=== PATIENT | male | born 1990 | race American Indian/Alaskan Native ===

== ENCOUNTER 2018-02-11 12:25 | Emergency (ER) | payer OTHER ==
[2018-02-11] MEDS ORDERED: AMIDATE IV ONE (12:46)
--- NOTE | 2018-02-11 12:59 | Emergency Department Report ---
ED Upper Extremity Inj HPI - General Chief Complaint: Shoulder Injury Stated Complaint: RT DISLOCATED SHOULDER Time Seen by Provider: 02/11/18 12:31 Source: patient, EMS Mode of arrival: Stretcher Limitations: No Limitations - History of Present Illness Initial Comments: States history of recurrent right side shoulder dislocation has never followed up with ortho here for evaluation. no numbness tingling or weakness says it popped when he tried his jacket on a school denies any other complaints no other injuries Complaint: Injury to:: right, shoulder -: Sudden Other Injuries: none Associated Symptoms: denies other symptoms. denies: weakness, numbness, neck pain, suspects foreign body, nausea/vomiting - Related Data Previous Rx's Medication Instructions Recorded Last Taken Type Naproxen [Naprosyn] 500 mg PO BID PRN #30 tablet 02/11/18 Unknown Rx Allergies Allergy/AdvReac Type Severity Reaction Status Date / Time No Known Allergies Allergy Unverified 02/11/18 12:31 ED Review of Systems ROS: Stated complaint: RT DISLOCATED SHOULDER Other details as noted in HPI Comment: All other systems reviewed and negative Constitutional: denies: diaphoresis, fever, malaise Respiratory: denies: shortness of breath, SOB with exertion, SOB at rest, stridor, wheezing Cardiovascular: denies: chest pain, palpitations, dyspnea on exertion, orthopnea , edema, syncope, paroxysmal nocturnal dyspnea Gastrointestinal: denies: diarrhea, constipation, hematemesis, melena Musculoskeletal: as per HPI, arthralgia, myalgia. denies: joint swelling Skin: denies: pruritus Neurological: denies: numbness, paresthesias ED Past Medical Hx - Past Medical History Additional medical history: Right shoulder dislocation - Surgical History Past Surgical History?: No - Social History Smoking Status: Never Smoker Substance Use Type: None - Medications Home Medications: Home Medications Medication Instructions Recorded Confirmed Last Taken Type Naproxen [Naprosyn] 500 mg PO BID PRN #30 tablet 02/11/18 Unknown Rx ED Physical Exam - General Limitations: No Limitations General appearance: alert, anxious - Head Head exam: Present: atraumatic, normocephalic - Eye Eye exam: Present: normal appearance, PERRL, EOMI - ENT ENT exam: Present: normal exam, normal orophraynx - Neck Neck exam: Present: normal inspection. Absent: tenderness, meningismus - Respiratory Respiratory exam: Present: normal lung sounds bilaterally. Absent: respiratory distress, wheezes, rales, rhonchi, stridor, chest wall tenderness, accessory muscle use, decreased breath sounds, prolonged expiratory - Cardiovascular Cardiovascular Exam: Present: regular rate, normal rhythm - GI/Abdominal GI/Abdominal exam: Present: soft. Absent: distended, tenderness, guarding, rebound, mass, bruit, pulsatile mass - Extremities Exam Extremities exam: Present: other (deformity right shoulder distally neurovascularly intact) - Back Exam Back exam: Present: normal inspection. Absent: CVA tenderness (L), muscle spasm , paraspinal tenderness, vertebral tenderness - Neurological Exam Neurological exam: Present: alert, oriented X3, CN II-XII intact. Absent: motor sensory deficit ED Course Vital Signs 02/11/18 02/11/18 12:31 13:22 Temperature 98.7 F Pulse Rate 69 Pulse Rate [ 62 Post-Procedure] Pulse Rate [Pre 68 -Procedure] Respiratory 17 Rate Respiratory 18 Rate [Post- Procedure] Respiratory 20 Rate [Pre- Procedure] Blood Pressure 134/93 Blood Pressure 127/88 [Post-Procedure ] Blood Pressure 123/82 [Pre-Procedure] O2 Sat by Pulse 100 Oximetry O2 Sat by Pulse 100 Oximetry [Post -Procedure] O2 Sat by Pulse 100 Oximetry [Pre- Procedure] - Reevaluation(s) Reevaluation #1: 02/11/18 14:03 Patient verbally consented for reduction right shoulder. He was informed of risks including loss of airway and cardiac arrest he did sign consent we therefore did perform procedure for reduction 02/11/18 14:03 - Orthopedic Joint Reduction Joint #1 Consent Obtained: written consent Time Out Performed: Yes Side: right Joint Reduction Location: shoulder Analgesia: moderate sedation Shoulder Technique Used (if applicable): traction/counter-traction, external rotation Post-Reduction Neuro Exam: intact Post-Reduction Vascular Exam: intact Post Reduction X-Ray Obtained: Yes Post Reduction X-Ray Results: reduced Splint Applied: Yes (sling placed) Patient Tolerated Procedure: well, no complications Additional Comments: 0.1/kg of etomidate with good results ED Medical Decision Making - Radiology Data Radiology results: image reviewed - Medical Decision Making Patient is neurovascularly intact pre-and post status post right shoulder reduction. Patient was placed in a shoulder immobilizer to follow up with orthopedics for recurrent shoulder dislocation and he is stable for discharge he was recovered per nursing protocol for etomidate conscious sedation and was discharged awake and alert and oriented 3 back to baseline Critical care attestation.: If time is entered above; I have spent that time in minutes in the direct care of this critically ill patient, excluding procedure time. ED Disposition Clinical Impression: Shoulder dislocation, recurrent Disposition: DC-01 TO HOME OR SELFCARE Is pt being admited?: No Condition: Stable Additional Instructions: See the doctor listed return if new or alarming symptoms Prescriptions: Naproxen [Naprosyn] 500 mg PO BID PRN #30 tablet PRN Reason: Pain Referrals: JEFFREY POE MD [Staff Physician] - 3-5 Days Time of Disposition: 14:10
[2018-02-11] MEDS ORDERED: MORPHINE IV ONE (13:25)
[2018-02-11] MEDS ORDERED: ZOFRAN IV ONE (13:26)
[2018-02-11] MEDS ORDERED: MORPHINE ONE (13:29)
--- NOTE | 2018-02-11 13:59 | XRay Report ---
RIGHT SHOULDER, ONE VIEW History: Postreduction film. Findings: The right shoulder dislocation has been reduced since 1251 hrs. and is in anatomic alignment. No obvious fracture. Impression: Successful reduction of the right shoulder dislocation.
--- NOTE | 2018-02-11 13:59 | XRay Report ---
RIGHT SHOULDER, ONE VIEW History: Right shoulder injury. Findings: No comparison. An anterior, inferior dislocation at the right glenohumeral joint is identified. The remainder of the examination is unremarkable. Impression: Right shoulder dislocation.
[2018-02-11 14:44] VITALS: BP 131/92
== END 2018-02-11 14:45 | disposition home or self-care (01) ==
LOC: EDSEX → ED 12:25
DX: M24.411 Recurrent dislocation, right shoulder (principal)
CPT/HCPCS: 23650; 73020; 73030; 96374; 96375; 99284; J2270; J2405